=== PATIENT | male | born 1950 | race Caucasian/White ===

== ENCOUNTER → 2018-04-07 18:06 | Outpatient (REF) | payer MEDICARE, OTHER, SELFPAY | LOC: LAB 18:06 | PROVIDERS: Family Provider Family Medicine; PCP Family Medicine; Visit Provider Physician Assistant | DX: Z48.02 Encounter for removal of sutures (principal); L08.9 Local infection of the skin and subcutaneous tissue, unspecified | CPT/HCPCS: 87070; 87075; 87077; 87147; 87186; 87205 ==

== ENCOUNTER 2018-07-28 10:15 | Day surgery (SDC) | payer MEDICARE, OTHER, SELFPAY ==
--- NOTE | 2018-07-23 20:39 | PM.PREOP ---
Pre-operative Note Interval Note Pre-op Check: Yes History & Physical exam performed today by Physician Changes: No
[2018-07-28] MEDS: PROPARACAINE 0.5% OPHTH SOL 2 DROPS EYE-OP (11:10)
[2018-07-28 11:15] VITALS: BP 135/83; PULSE 62; RESP 16; TEMP 36.5; O2SAT 98; BMI 29.7
[2018-07-28] MEDS: CATARACT EYE COMPOUND (10 DROPS/SYRINGE) 3 DROPS EYE-OP (11:15)
--- NOTE | 2018-07-28 12:04 | SUR.OPER ---
Supine on eye stretcher, head on extension cradle secured with tape. Arms tucked at sides with blanket. Pillow under knees.
[2018-07-28] MEDS: BALANCED SALT IRRIG SOLN NO.2 15 ML IRRIG.SOLN IRR (12:21)
[2018-07-28] MEDS: MOXIFLOXACIN OPHTH DROPS 3 ML BOTTLE 2 DROPS INJ ×3 (12:22→12:28)
[2018-07-28] MEDS: NEOMYCIN/POLY/DEX OPHTH OINT 1 APPLIC EYE-RIGHT (12:23)
[2018-07-28] MEDS: HYALURONATE SODIUM 10 MG/ML SYRINGE INJ (12:23)
[2018-07-28] MEDS: TRIAMCINOLONE 50 MG/5 ML VIAL INJ (12:23)
[2018-07-28] MEDS: OFLOXACIN 0.3% OPHTH 5 ML 2 DROPS EYE-RIGHT (12:24)
[2018-07-28] MEDS: CHONDROIDTIN/SOD HYALURONATE 1.05 ML SYRINGE INTRAOCULA (12:25)
[2018-07-28] MEDS: BALANCED SALT IRRIG SOLN NO.2 500 ML, EPINEPHrine 1 MG IRR (12:25)
[2018-07-28] MEDS: LIDOCAINE 1% W/EPI INJ 20 ML INJ (12:27)
[2018-07-28] MEDS: LIDOCAINE 2% 4 ML, BUPIVACAINE 0.5% (PF) 4 ML, HYALURONIDASE 150 UNIT INJ (12:29)
[2018-07-28] MEDS: PHENYLEPHRINE/LIDOCAINE VIAL (OR) 0.2 ML EYE-OP (12:31)
[2018-07-28 12:50] VITALS: BP 137/72; PULSE 62; RESP 16; TEMP 36.3; O2SAT 94
[2018-07-28 13:10] VITALS: BP 134/79; PULSE 75; RESP 15; TEMP 36.3; O2SAT 98
--- NOTE | 2018-07-28 13:54 | P.OP_ITS ---
Operative Date/Time/Diagnoses Date of procedure: 07/28/18 Time of procedure: 12:00 Procedure & Clinicians Procedure: Date of service: July 28, 2018 Preoperative diagnoses: 1. Right nuclear sclerotic Cataract 2. High myopia Postoperative diagnoses: 1. Cataract removed with phacoemulsification and posterior chamber intraocular lens implant. Procedure: Phacoemulsification with posterior chamber intraocular lens implant Surgeon: Dana Greene MD Complications: None Specimen: None Implant: ZCBOO+10.5 Blood loss: None Anesthesia: Retrobulbar with monitored standby Anesthesiologist: Salinas Alvarez M.D. Description of procedure: Patient is a 68 year old male with decreased vision due to cataract which is affecting activities of daily living. He wants surgery to improve vision. He has taken to the operating room and given IV sedation. A retrobulbar block insert consisting of 6 cc of 2% xylocaine without epinephrine mixed half and half with 0.5% Marcaine with 1 cc of hyaluronidase added is placed between the medial and lateral 1/3 of the inferior orbital rim. Lid akinesia is obtain with 1% xylocaine with epinephrine infiltrated along the lid margin. The eye is manually massaged for 30 sec, prepped using Betadine solution, and draped in the usual sterile fashion. Temporal approach was made, a 1 mm side-port incision was made at the 12 oclock meridian. Phenylephrine 1.5% mixed with 1% xylocaine 0.2 cc was placed into the anterior chamber. Viscoat followed by Healon was then placed. A 2.6 mm clear incision with a 2.6 mm blade was placed at the 3 oclock meridian. A 360 degree capsulorrhexis style capsulotomy was then performed with a cystitome needle on a Healon. Hydrodelineation and hydrodissection were performed. The phacoemulsification unit is introduced, and sculpting notice used to groove the central lens. It is then removed in chopping mode. Epi nucleus is removed with epinuclear mode and irrigation aspiration was used to remove the peripheral cortex. The posterior capsule is polished. The intraocular lens is selected, inspected, power confirmed, and placed in the posterior chamber. The pupil was constricted. The wound was stromally hydrated and tested for leaks, there was none and was left sutureless. Vigamox 0.1 cc was placed into the anterior chamber. Kenalog 0.2 cc was placed in the superior subconjunctival space. A drop of antibiotic and was placed and the eye was patched and shielded. The patient was stable and returned to the recovery room in excellent condition. Dictated by: Dana Greene MD Copy to: [facility] Same procedure as scheduled: Yes
== END 2018-07-28 13:12 | disposition home or self-care (01) ==
PROVIDERS: PCP Family Medicine; Visit Provider Ophthalmology
PROC: (CPT 66984; principal; 2018-07-28 12:15)
DX: H25.11 Age-related nuclear cataract, right eye (principal); G47.33 Obstructive sleep apnea (adult) (pediatric); I10 Essential (primary) hypertension; M79.7 Fibromyalgia; R42 Dizziness and giddiness; H44.20 Degenerative myopia, unspecified eye
CPT/HCPCS: 66984; J0171; J2704; J3301; J3470

== ENCOUNTER 2018-08-04 09:13 | Day surgery (SDC) | payer MEDICARE, OTHER, SELFPAY ==
--- NOTE | 2018-08-03 17:10 | PM.PREOP ---
Pre-operative Note Interval Note History & Physical reviewed/Exam performed by Physician: Yes Changes to H&P: No
--- NOTE | 2018-08-04 08:05 | P.OP_ITS ---
Operative Date/Time/Diagnoses Date of procedure: 08/04/18 Time of procedure: 10:45 Procedure & Clinicians Procedure: Preoperative diagnoses: 1. Left nuclear sclerotic and cortical cataract. Postoperative diagnoses: 1. Cataract removed by phacoemulsification with placement of posterior chamber intraocular lens. Procedure: Phacoemulsification with posterior chamber intraocular lens implant Surgeon: Dana Greene MD Complications: None Specimen: None Implant:ZCBOO +13.5 Blood loss: None Anesthesia: Retrobulbar with monitored standby Description of procedure: Patient presents with a complaint of decreased vision due to cataract which is affecting activities of daily living. The patient wants surgery to improve vision. The patient was taken to the operating room and given IV sedation. A retrobulbar block insert consisting of 6 cc of 2% xylocaine without epinephrine mixed half and half with 0.5% Marcaine with 1 cc of hyaluronidase added is placed between the medial and lateral 1/3 of the inferior orbital rim. Lid akinesia is obtain with 1% xylocaine with epinephrine infiltrated along the lid margin. The eye is manually massaged for 30 sec, prepped using Betadine solution, and draped in the usual sterile fashion. He had some discomfort so topical lidoacaine jelly was placed. Temporal approach was made, a 1 mm side-port incision was made 90? from the proposed clear corneal incision position. Phenylephrine 1.5% mixed with 1% xylocaine 0.2 cc was placed into the anterior chamber. Viscoat followed by Mickeyon was then placed. A 2.6 mm clear incision with a 2.6 mm blade was placed. A 360 degree capsulorrhexis style capsulotomy was then performed with a cystitome needle on a Healon. Hydrodelineation and hydrodissection were performed. The phacoemulsification unit is introduced, and sculpting notice used to groove the central lens. It is then removed in chopping mode. Epi nucleus is removed with epinuclear mode and irrigation aspiration was used to remove the peripheral cortex. The posterior capsule is polished. The intraocular lens is selected, inspected, power confirmed, and placed in the posterior chamber. The pupil was constricted with Miostat.. The wound was stromally hydrated and tested for leaks, there was none and it was left sutureless. Vigamox 0.1 cc was placed into the anterior chamber. Kenalog 0.2 cc was placed in the superior subconjunctival space. A drop of antibiotic and was placed and the eye was patched and shielded. The patient was stable and returned to the recovery room in excellent condition. Dictated by: Dana Greene MD Copy to: [facility] Same procedure as scheduled: Yes
[2018-08-04] MEDS: PROPARACAINE 0.5% OPHTH SOL 2 DROPS EYE-OP (09:50)
[2018-08-04 09:52] VITALS: BP 123/71; PULSE 63; RESP 15; TEMP 36.4; O2SAT 98; BMI 29.7
[2018-08-04] MEDS: CATARACT EYE COMPOUND (10 DROPS/SYRINGE) 3 DROPS EYE-OP (10:08)
--- NOTE | 2018-08-04 11:15 | SUR.OPER ---
Supine on eye stretcher, head on extension cradle secured with tape. Arms tucked at sides with blanket. Pillow under knees.
[2018-08-04] MEDS: PHENYLEPHRINE/LIDOCAINE VIAL (OR) 0.2 ML EYE-OP (11:18)
[2018-08-04] MEDS: TRIAMCINOLONE 50 MG/5 ML VIAL INJ (11:19)
[2018-08-04] MEDS: MOXIFLOXACIN OPHTH DROPS 3 ML BOTTLE 2 DROPS INJ (11:19)
[2018-08-04] MEDS: HYALURONATE SODIUM 10 MG/ML SYRINGE INJ (11:20)
[2018-08-04] MEDS: CHONDROIDTIN/SOD HYALURONATE 1.05 ML SYRINGE INTRAOCULA (11:20)
[2018-08-04] MEDS: BALANCED SALT IRRIG SOLN NO.2 15 ML IRRIG.SOLN IRR (11:20)
[2018-08-04] MEDS: NEOMYCIN/POLY/DEX OPHTH OINT 1 APPLIC EYE-LEFT (11:21)
[2018-08-04] MEDS: OFLOXACIN 0.3% OPHTH 5 ML 2 DROPS EYE-LEFT (11:21)
[2018-08-04] MEDS: CARBACHOL 1.5 ML VIAL INJ (11:21)
[2018-08-04] MEDS: LIDOCAINE 2% 4 ML, BUPIVACAINE 0.5% (PF) 4 ML, HYALURONIDASE 150 UNIT INJ (11:22)
[2018-08-04] MEDS: BALANCED SALT IRRIG SOLN NO.2 500 ML, EPINEPHrine 1 MG IRR (11:22)
[2018-08-04] MEDS: LIDOCAINE 1% W/EPI INJ 20 ML INJ (11:23)
[2018-08-04] MEDS: LIDOCAINE JELLY 2% 5 ML 1 APPLIC TOP (11:23)
[2018-08-04 12:00] VITALS: BP 121/77; PULSE 66; RESP 16; TEMP 36.5; O2SAT 97
== END 2018-08-04 15:02 | disposition home or self-care (01) ==
LOC: OR 09:14
PROVIDERS: PCP Family Medicine; Visit Provider Ophthalmology
DX: H25.12 Age-related nuclear cataract, left eye (principal); G47.33 Obstructive sleep apnea (adult) (pediatric); I10 Essential (primary) hypertension; M79.7 Fibromyalgia
CPT/HCPCS: J0171; J2704; J3301; J3470

== ENCOUNTER → 2018-12-08 12:55 | Outpatient (CLI) | payer MEDICARE, OTHER, SELFPAY ==
--- NOTE | 2018-12-08 14:09 | DI.MRI.S_ITS ---
PROCEDURE: MR CERVICAL SPINE WO CON INDICATIONS: Radiculopathy, cervical region TECHNIQUE: Noncontrast sagittal T1 spin echo and T2 fast spin echo, sagittal STIR, foraminal oblique sagittal T2 fast spin echo, and axial gradient echo or T2 fast spin echo through the cervical spine. COMPARISON: [facility], MR, C-SPINE WITHOUT CONTRAST, 11/27/2008, 18:26. FINDINGS: Image quality: Excellent. Alignment and Curvature: Straightening of the normal lordotic curvature. Grade 1 anterolisthesis of C2 on C3. This has developed since the prior study. Multilevel degenerative endplate sclerosis and spurring. Diffuse facet arthropathy. Spinal Cord: Visualized spinal cord has normal size and signal. No cerebellar tonsillar herniation. Paraspinous Soft Tissues: No paravertebral masses. Prevertebral soft tissues are normal in thickness. C2-C3: Bilateral uncovertebral arthropathy and posterior intervening disc osteophyte complex, and bilateral facet arthropathy. Severe right foraminal stenosis with nerve root compression. Mild left foraminal narrowing. This has progressed on both sides since the prior study C3-C4: Bilateral uncovertebral arthropathy and posterior intervening disc osteophyte complex, and bilateral facet disease. Severe bilateral foraminal stenoses with nerve root compression. This appears progressed bilaterally since the remote comparison study C4-C5: Bilateral uncovertebral arthropathy and posterior intervening disc osteophyte complex, and bilateral facet disease. No definite high-grade central canal narrowing. Severe bilateral foraminal stenoses, appear progressed on both sides since prior study C5-C6: Bilateral uncovertebral arthropathy and posterior intervening disc osteophyte complex, and bilateral facet arthropathy. Mild canal narrowing, grossly unchanged. Severe bilateral foraminal stenoses, left greater than right with nerve root compression. This is unchanged on axial images however no oblique sagittal pulse sequences on the prior study for comparison. C6-C7: Bilateral uncovertebral arthropathy and posterior intervening disc osteophyte complex, which is asymmetric, right girdle appear bilateral facet arthropathy. Mild right-sided canal narrowing which is probably unchanged. Moderate bilateral foraminal stenoses with nerve root compression on both sides C7-T1: Normal appearance. IMPRESSION: Interval progression in severe diffuse cervical spondylosis and facet arthropathy with bilateral severe foraminal stenoses as detailed above by spinal level. Grade 1 anterolisthesis of C2 on C3 has developed since prior study. Dictated by: Suresh Crawford M.D. on 12/08/2018 at 14:39 Approved by: Suresh Crawford M.D. on 12/08/2018 at 14:47
== END ==
PROVIDERS: PCP Family Medicine; Visit Provider Orthopaedic Surgery
DX: M47.22 Other spondylosis with radiculopathy, cervical region (principal); M48.02 Spinal stenosis, cervical region; M43.12 Spondylolisthesis, cervical region
CPT/HCPCS: 72141

== ENCOUNTER → 2020-06-11 10:09 | Outpatient (CLI) | payer MEDICARE, OTHER, SELFPAY ==
[2020-06-11 12:17] LABS: COVID19 -Nasal RAPID Negative (Negative)
== END ==
PROVIDERS: PCP Family Medicine; Visit Provider Physician Assistant
DX: Z11.59 Encounter for screening for other viral diseases (principal)
CPT/HCPCS: 87635

== ENCOUNTER 2020-06-13 12:58 | Day surgery (SDC) | payer MEDICARE, OTHER, SELFPAY ==
[2020-06-13] VITALS (7 sets, daily range): BP systolic 92–161; BP diastolic 56–86; PULSE 58–80; RESP 9–18; TEMP 36.4–36.8; O2SAT 92–97; BMI 29.0
--- NOTE | 2020-06-13 | PATH_ITS ---
[facility] Accession Number: [id number] . 01 Material submitted: . PART A: gastrointestinal site - GASTRIC PART B: stomach - STOMACH PART C: colon - RANDOM COLON POLYPS . 01 Clinical history: . A: R/O CELIAC B: R/O HP . 02 Diagnosis: A. Designated Gastric, Biopsy: Duodenal mucosa with no diagnostic abnormality. Negative for active inflammation, features of sprue, dysplasia, or malignancy. . B. Stomach, Biopsies: Gastric antral mucosa with mild chronic inflammation, focal erosion and focal intestinal metaplasia. Intestinal metaplasia present in one of two biopsy fragments on alcian blue stain. Negative for Helicobacter organisms by immunohistochemistry. Negative for dysplasia or malignancy. . C. Random Colon, Biopsies: Colonic mucosa with no diagnostic abnormality. Negative for active, chronic, and microscopic colitis. Negative for dysplasia and malignancy. . [facility] 06/18/2020 1520 Local . 02 Electronically signed: . Brijesh Howard MD, PhD, Pathologist NPI- [id number] . 01 Gross description: . Part A: GASTRIC: Received in formalin are 2 fragment(s) of leahy, soft tissue measuring 0.3 x 0.2 x 0.2 cm to 0.2 x 0.2 x 0.1 cm submitted entirely in 1 cassette(s) Part B: STOMACH: Received in formalin is 1 fragment(s) of leahy, soft tissue measuring 0.5 x 0.3 x 0.2 cm submitted entirely in 1 cassette(s) Part C: RANDOM COLON POLYPS: Received in formalin are 5 fragment(s) of leahy, soft tissue measuring 0.3 x 0.2 x 0.2 cm to 0.2 x 0.2 x 0.2 cm submitted entirely in 1 cassette(s) /[facility] 06/14/2020 0657 Local . 02 Microscopic: . B. An AB/PAS stain is performed to evaluation for intestinal metaplasia, and highlights a focus of goblet cells. An immunohistochemical stain is performed to evaluate for Helicobacter organisms, and is negative. Control stains show appropriate reactivity. . * This test was developed and its performance characteristics determined by [facility]. It has not been cleared or approved by the U.S. Food and Drug Administration. The FDA has determined that such clearance or approval is not necessary. This test is used for clinical purposes. It should not be regarded as investigational or for research. . 02 Pathologist provided ICD-10: K29.70, K31.9, R19.4 . 02 CPT . 351466, 757653, 005095, [id number], 842262 Performed at: 01 [facility] [address] [address], [place], [place] [id number] MD Bert Robles MD Phone: [phone] Performed at: 02 [facility] [address] [place] [id number] MD Mitra Tuttle MD Phone: [phone]
[2020-06-13] MEDS: SODIUM CHLORIDE 0.9% 1,000 ML 21 ML IV (14:01)
--- NOTE | 2020-06-13 14:45 | PM.PREOP ---
Pre-operative Note COVID-19 COVID-19 status: Negative Interval Note History & Physical reviewed/Exam performed by Physician: Yes Changes to H&P: No ASA Class (for procedural sedation): II
--- NOTE | 2020-06-13 14:45 | PM.OP.ENDO ---
Operative Date/Time/Diagnoses Date of procedure: 06/13/20 Pre-op diagnosis: See indication and findings Procedure & Clinicians Study performed: EGD and colonoscopy Same procedure as scheduled: Yes Indications: Diarrhea and GE reflux Surgeon: Emilie Mathew Procedure Notes Procedure in detail: After informed consent was obtained patient was placed in left lateral decubitus position. The video upper scope placed through the oropharynx and with the patient's help swelled into the esophagus. The esophagus, stomach, duodenum were carefully examined. On withdrawal, retroflexed view the GE junction was performed. The scope was removed. The patient tolerated procedure well. The patient was then turned and colonoscope substituted. This was introduced in the rectum slowly advanced cecum. Preparation was good. On slow withdrawal mucosa was carefully examined. The scope was removed. The patient tolerated procedure well. Blood loss none Complications none Sedation MAC with anesthesia Findings EGD 1. One erosion at the GE junction for LA classification A esophagitis. No apparent Tamayo's esophagus present. 2. Patchy gastric erythema and at least 1 nodular erosion in the pre-pyloric region. Biopsies taken to rule out Helicobacter 3. Normal duodenal bulb and sweep biopsies taken to rule out celiac. Colonoscopy 1. Tortuous and somewhat capacious colon. 2. Otherwise normal mucosa. Multiple biopsies taken to rule out microscopic colitis. Recall colonoscopy should be in 5-10 years. He will follow-up with the pathology results for further potential workup. He will stay on his current medications.
== END 2020-06-13 16:10 | disposition home or self-care (01) ==
PROVIDERS: PCP Family Medicine; Referring Provider Internal Medicine Gastroenterology; Visit Provider Internal Medicine Gastroenterology
PROC: 0DJ08ZZ Inspection of Upper Intestinal Tract, Via Natural or Artificial Opening Endoscopic (ICD-10-PCS; CPT 43235; principal; 2020-06-13 14:30)
PROC: 0DJD8ZZ Inspection of Lower Intestinal Tract, Via Natural or Artificial Opening Endoscopic (ICD-10-PCS; CPT 45378; 2020-06-13 14:30)
DX: K29.50 Unspecified chronic gastritis without bleeding (principal); R19.7 Diarrhea, unspecified; K21.9 Gastro-esophageal reflux disease without esophagitis; I10 Essential (primary) hypertension
CPT/HCPCS: 43239; 45378

== ENCOUNTER → 2022-07-09 15:41 | Outpatient (CLI) | payer MEDICARE, OTHER, SELFPAY ==
--- NOTE | 2022-07-09 | DI.MRI.S_ITS ---
PROCEDURE: MR KNEE RT WO CON INDICATIONS: BILATERAL PRIMARY OSTEOARTHRITIS OF KNEE TECHNIQUE: Noncontrast sagittal T2 fast spin echo with fat saturation and large [id number] thin slice PD fast spin echo, sagittal 3-D FLASH with fat saturation; coronal T1 spin echo and PD fast spin echo with fat saturation, and axial PD fast spin echo with fat saturation through the knee. COMPARISON: [facility] [place] Spooner, CR, XR KNEE ARTHRITIC SERIES BI, 07/03/2022, 16:36. FINDINGS: Image quality: Excellent. Anterior Cruciate Ligament: Intact. Posterior Cruciate Ligament: Intact. Medial Collateral Ligament: Intact. Lateral Collateral Ligament: Intact. Medial Meniscus: There is horizontal oblique tearing of the body of the medial meniscus within inferiorly displaced meniscal flap extending into the medial tibial gutter. A parameniscal cyst is seen medial to the proximal tibia measuring up to 4.2 by 2.5 x 0.8 cm. Lateral Meniscus: There is horizontal tearing of the body of the lateral meniscus extending to the free edge margin. Medial and Lateral Tendons: The semimembranosus tendon insertions and meniscocapsular junction appear intact. Visualized portions of the pes anserinus tendons appear normal. No abnormal bursal fluid. The long and short heads of the biceps femoris tendon appear intact. The popliteus tendon appears intact. No signs of posterolateral corner injury. Iliotibial band appears normal. Anterior Structures: The quadriceps and patellar tendons appear intact. No patellar subluxation. No femoral trochlear dysplasia or ventral trochlear prominence. No edema in the infrapatellar fat pad. Bones: No acute trabecular bone injury or fracture. Chronic cystic changes the posterior aspect of the central tibial plateau or most likely related to chronic ligamentous traction or intraosseous ganglion. Medial Femorotibial Cartilage: Moderate partial-thickness cartilage thinning and irregularity is seen throughout the weight-bearing portion of the medial femorotibial compartment. Lateral Femorotibial Cartilage: No focal cartilage defect. Mild surface irregularity at the central weight-bearing portion of the lateral femoral condyle. Patellofemoral Cartilage: Full-thickness cartilage loss is seen at the lateral femoral trochlea and trochlear groove inferiorly with subchondral cystic changes. Soft Tissues: A small joint effusion is present. Trace medial popliteal cyst. The musculature surrounding the knee is normal in bulk. IMPRESSION: 1. Horizontal oblique tear at the body of the medial meniscus with inferiorly displaced meniscal flap located in the medial tibial gutter. A large parameniscal cyst measuring up to 4.2 cm is also seen in the adjacent medial tibial gutter. 2. Horizontal tearing of the body of the lateral meniscus. 3. Large area of full-thickness cartilage loss in the anterior compartment involving the lateral femoral trochlea and trochlear groove. Grade 2-3 chondromalacia in the weight-bearing portion of the medial compartment. Mild grade 2 chondromalacia in the lateral compartment. 4. Cruciate and collateral ligaments are intact. No acute trabecular bone injury. 5. Small joint effusion. Approved by: Nicholas Maki M.D. on 07/10/2022 at 9:10
== END ==
PROVIDERS: PCP Family Medicine; Referring Provider Orthopaedic Surgery; Visit Provider Orthopaedic Surgery
DX: M17.0 Bilateral primary osteoarthritis of knee (principal); S83.241A Other tear of medial meniscus, current injury, right knee, initial encounter; S83.281A Other tear of lateral meniscus, current injury, right knee, initial encounter; M94.261 Chondromalacia, right knee; M25.461 Effusion, right knee
CPT/HCPCS: 73721

== ENCOUNTER → 2022-08-15 12:50 | Outpatient (CLI) | payer MEDICARE, OTHER, SELFPAY ==
[2022-08-15 13:47] LABS: Add Manual Diff / Slide Review NO; Basophils Absolute Auto 0 /uL (0-100); Basophils Percent Auto 0.5 % (0-2); Eosinophils Absolute Auto 100 /uL (0-450); Eosinophils Percent Auto 2.2 % (2-4); Hematocrit 43.6 % (41-53); Hemoglobin 14.3 g/dL (13.5-17.5); Lymphocytes Absolute Auto 1500 /uL (1100-4500); Lymphocytes Percent Auto 29.9 % (25-40); Mean Corpuscular HGB Conc 32.9 % (30-36); Mean Corpuscular Hemoglobin 28.8 PG (26-34); Mean Corpuscular Volume 87.5 fL (80-100); Monocytes Absolute Auto 400 /uL (0-900); Monocytes Percent Auto 8.1 % (3-14); Neutrophils Absolute Auto 3000 /uL (1500-7000); Neutrophils Percent Auto 59.3 % (50-75); Platelet Count 282 X10^3/uL (150-400); Red Blood Cell Count 4.98 X10^6/uL (4.5-5.9); Red Cell Distribution Width 14.2 % (11.6-14.8); White Blood Cell Count 5.1 X10^3/uL (4.5-11.0)
[2022-08-15 14:00] LABS: BUN Creatinine Ratio 19.5 (6-22); Blood Urea Nitrogen 22 mg/dL (9-20); Calcium 9.4 mg/dL (8.4-10.2); Carbon Dioxide 29 mmol/L (22-32); Chloride 96 mmol/L (98-107); Estimated Glomerular Filt Rate > 60 mL/min (>60); Glucose 92 mg/dL (80-110); HEMOLYSIS < 15 (0-50); Potassium 4.3 mmol/L (3.4-5.1); Sodium 136 mmol/L (137-145)
[2022-08-15 14:01] LABS: Hemoglobin A1C% w Est Avg Glu 5.7 % (4.0-6.0)
[2022-08-15 15:38] LABS: Appearance Urine UA CLEAR; Bilirubin Urine UA NEGATIVE (NEGATIVE); Color Urine UA LT. YELLOW; Glucose Urine UA NEGATIVE (Negative); Ketones Urine UA NEGATIVE (NEGATIVE); Leukocyte Esterase Urine UA NEGATIVE (NEGATIVE); Nitrite Urine UA NEGATIVE (Negative); Occult Blood Urine UA NEGATIVE (Negative); Protein Urine UA NEGATIVE (Negative); Urobilinogen Urine UA 0.2 E.U./dL (0.2)
[2022-08-15 16:27] LABS: Bacteria Urine None Seen; Culture Indicated Urine Cult Not Indicated; RBC Urine None Seen (0-5/HPF); WBC Urine 0-1/HPF (0-5/HPF)
== END ==
PROVIDERS: PCP Family Medicine; Referring Provider Orthopaedic Surgery; Visit Provider Orthopaedic Surgery
DX: Z01.818 Encounter for other preprocedural examination (principal); R73.9 Hyperglycemia, unspecified; Z01.812 Encounter for preprocedural laboratory examination; N39.0 Urinary tract infection, site not specified
CPT/HCPCS: 36415; 80048; 81001; 83036; 85025; 93005

== ENCOUNTER 2024-12-29 20:17 | Emergency (ER) | payer MEDICARE, OTHER, SELFPAY ==
[2024-12-29 20:57] VITALS: BP 193/94; PULSE 63; RESP 16; TEMP 37; O2SAT 98; BMI 27.4
[2024-12-29 22:13] VITALS: BP 173/74; PULSE 60; RESP 18; TEMP 36.8; O2SAT 99
[2024-12-30] VITALS: BP 181/79; PULSE 56; RESP 14; O2SAT 95
--- NOTE | 2024-12-30 00:16 | DI.RAD.S_ITS ---
1PROCEDURE: XR CHEST 1V INDICATIONS: Chest Pain TECHNIQUE: One view of the chest was acquired. COMPARISON: None. FINDINGS AND IMPRESSION: On this single view study, no airspace consolidation or pleural effusion is seen. Normal heart size. Degenerative osseous changes. Dictated by: Noam Murry M.D. on 12/30/2024 at 1:45 Approved by: Noam Murry M.D. on 12/30/2024 at 1:45
[2024-12-30 00:39] LABS: Add Manual Diff / Slide Review NO; Basophils Absolute Auto 0 /uL (0-100); Basophils Percent Auto 0.7 % (0-2); Eosinophils Absolute Auto 200 /uL (0-450); Eosinophils Percent Auto 2.7 % (2-4); Hemoglobin 13.9 g/dL (13.5-17.5); Lymphocytes Absolute Auto 1900 /uL (1100-4500); Lymphocytes Percent Auto 34.2 % (25-40); Mean Corpuscular HGB Conc 33.8 % (30-36); Mean Corpuscular Hemoglobin 30.3 PG (26-34); Mean Corpuscular Volume 89.6 fL (80-100); Monocytes Absolute Auto 400 /uL (0-900); Monocytes Percent Auto 8.2 % (3-14); Neutrophils Absolute Auto 3000 /uL (1500-7000); Neutrophils Percent Auto 54.2 % (50-75); Platelet Count 277 X10^3/uL (150-400); Prothrombin Time 11.8 SECONDS (9.4-12.5); Red Blood Cell Count 4.58 X10^6/uL (4.5-5.9); Red Cell Distribution Width 13.6 % (11.6-14.8); White Blood Cell Count 5.5 X10^3/uL (4.5-11.0)
[2024-12-30 00:43] LABS: Alanine Aminotransferase 23 IU/L (<50); Albumin 4.4 g/dL (3.5-5.0); Albumin Globulin Ratio 1.6 (1.0-2.8); Alkaline Phosphatase 61 U/L (38-126); Aspartate Aminotransferase 42 IU/L (17-59); BUN Creatinine Ratio 22.1 (6-22); Bilirubin Total 0.7 mg/dL (0.2-1.3); Blood Urea Nitrogen 19 mg/dL (9-20); Calcium 9.3 mg/dL (8.4-10.2); Carbon Dioxide 28 mmol/L (22-32); Chloride 101 mmol/L (98-107); Creatine Kinase 85 U/L (55-170); Estimated Glomerular Filt Rate > 60 mL/min (>60); Globulin 2.8 g/dL (1.7-4.1); Glucose 96 mg/dL (70-99); Lipase 72 U/L (23-300); Magnesium 1.9 mg/dL (1.6-2.3); Sodium 135 mmol/L (137-145); Total Protein 7.2 g/dL (6.3-8.2)
[2024-12-30 00:47] LABS: HEMOLYSIS 71 (0-50); Potassium 4.5 mmol/L (3.4-5.1)
[2024-12-30 00:54] LABS: NT-proBNP (BNP-Adult 18+) 38 pg/mL (<125); Troponin I < 0.012 ng/mL (0.01-0.034)
[2024-12-30 02:38] VITALS: PULSE 47; RESP 18; O2SAT 99
--- NOTE | 2024-12-30 02:55 | ED.GENADULT ---
HPI - General Adult General Chief complaint: Hypertension Stated complaint: high BP, dizzyness, headache Time Seen by Provider: 12/30/24 02:54 Source: patient, RN notes reviewed and old records reviewed Mode of arrival: Ambulatory Limitations: no limitations History of Present Illness HPI narrative: 74-year-old male history of hypertension, fibromyalgia, chronic pain who presents with complaint of elevated blood pressures. States he typically runs about 140s for the past 10 days has been running 170s to 180s he also notes his heart rate typically runs in the 60s but he was had heart rates in the 50s. Notes he was stopped his Elavil for about 6 days but thought that might be related so he restarted it about 6 days ago. He was on lisinopril for hypertension he was not had his dose this evening but does normally take it. He takes Celebrex daily but no aspirin or thinners. Patient states no chest pain, no shortness of breath, he was had some dizziness on and off over the years states he had some in the last day but it has not resolved. He states he was had that dizziness or spinning sensation on and off for years it is often worse when he moves his head quickly. Has not significantly worsened. No headaches currently. No nausea or vomiting, no other GI or urinary symptoms. Patient states no vision changes, no difficulty with movement speech. No drug allergies. Reports a history of back surgery x2 and right knee surgery. No tobacco alcohol or recreational drugs. He has follow up in the next week with Neurology as he was noticed some memory issues that he thinks might be progressive. He has not been in touch with his physician about his blood pressure this week. He elected to come today as he read articles that noted if you are blood pressure is high and your heart rates low he should be evaluated. Related Data Home Medications ?Medication ?Instructions ?Recorded ?Confirmed amitriptyline 10 mg tablet 10 mg PO DAILY 07/28/18 06/13/20 bupropion HCl 150 mg tablet,12 hr 150 mg PO DAILY 07/28/18 06/13/20 sustained-release celecoxib 200 mg capsule (Celebrex) 200 mg PO DAILY 07/28/18 06/13/20 clonazepam 0.25 mg disintegrating See Rx Instructions .Route .COMPLEX 07/28/18 06/13/20 tablet dextroamphetamine sulfate 5 mg See Rx Instructions .Route .COMPLEX 07/28/18 06/13/20 tablet fluoxetine 10 mg capsule 10 mg PO DAILY 07/28/18 06/13/20 levothyroxine 25 mcg tablet 25 mcg PO DAILY 07/28/18 06/13/20 liothyronine 5 mcg tablet 5 mcg PO DAILY 07/28/18 06/13/20 lisinopril 20 mg tablet 20 mg PO DAILY 07/28/18 06/13/20 Allergies Allergy/AdvReac Type Severity Reaction Status Date / Time midazolam (MIDAZOLAM) AdvReac Severe PT FREAKS Verified 12/29/24 20:55 OUT Review of Systems Review of Systems ROS Unobtainable: All systems reviewed & are unremarkable except as noted in HPI and below Patient History Social History household members: spouse Smoking Status: Former smoker alcohol intake: never Smoking Status: Former smoker Exam Narrative Exam Narrative: GENERAL: Alert and oriented x three, male in mild distress HEENT: Head normocephalic, atraumatic, EOMI, pupils reactive, face symmetric, moist mucous membranes NECK: Supple, full range of motion CARDIOVASCULAR: Regular rate and rhythm without murmurs, rubs or gallops. No JVD. No edema bilateral lower extremities RESPIRATORY: Breath sounds equal bilaterally, no wheezes rales or rhonchi. ABDOMEN: Soft, nontender. Normoactive bowel sounds all 4 quadrants. No guarding or rebound, rigidity, no mass : No CVA tenderness EXTREMITIES: Normal range of motion, no clubbing or edema. Neurovascularly intact NEUROLOGICAL: Cranial nerves II through XII grossly intact. Moving all extremities SKIN: Warm, dry, no petechiae, no rashes or lesions. Initial Vital Signs Initial Vital Signs: Vital Signs Temperature 98.6 F 12/29/24 20:57 Pulse Rate 63 12/29/24 20:57 Respiratory Rate 16 12/29/24 20:57 Blood Pressure 193/94 H 12/29/24 20:57 Pulse Oximetry 98 12/29/24 20:57 Oxygen Delivery Method Room Air 12/29/24 20:57 Course Orders Ordered: ED Orders 12/30/24 00:16 XR chest 1V Stat EKG-12 Lead Stat 12/30/24 00:20 Complete Blood Count AUTO DIFF Stat Comprehensive Metabolic Panel Stat Lipase Stat Magnesium Stat NT-proBNP (BNP-Adult 18+) Stat Prothrombin Time INR Stat Troponin & CK Cardiac Panel Stat Discontinued Medications Aspirin (Aspirin 81 Mg Chew Tab) 324 mg PO NOW ONE Stop: 12/30/24 00:16 Last Admin: 12/30/24 03:13 Dose: Not Given Documented By: AB Vital Signs Vital signs: Vital Signs - 8 hr 12/30/24 00:00 12/30/24 02:38 12/30/24 03:00 Pulse Rate 56 L 47 L 62 Respiratory Rate 14 18 24 Blood Pressure 181/79 H Pulse Oximetry 95 99 100 Oxygen Delivery Method Room Air 12/30/24 03:12 12/30/24 03:12 Pulse Rate 56 L Respiratory Rate 18 Blood Pressure 179/77 H Pulse Oximetry 96 Oxygen Delivery Method Medical Decision Making Lab Data 12/30/24 00:20 12/30/24 00:20 Labs: Lab Results 12/30/24 Range/Units 00:20 WBC 5.5 (4.5-11.0) X10^3/uL RBC 4.58 (4.5-5.9) X10^6/uL Hgb 13.9 (13.5-17.5) g/dL Hct 41.0 (41-53) % MCV 89.6 (80-100) fL MCH 30.3 (26-34) PG MCHC 33.8 (30-36) % RDW 13.6 (11.6-14.8) % Plt Count 277 (150-400) X10^3/uL Neut % (Auto) 54.2 (50-75) % Lymph % (Auto) 34.2 (25-40) % Buchanan % (Auto) 8.2 (3-14) % Eos % (Auto) 2.7 (2-4) % Baso % (Auto) 0.7 (0-2) % Neut # (Auto) 3000 (3354-7484) /uL Lymph # (Auto) 1900 (6435-5334) /uL [place] # (Auto) 400 (0-900) /uL Eos # (Auto) 200 (0-450) /uL Baso # (Auto) 0 (0-100) /uL PT 11.8 (9.4-12.5) SECONDS INR 1.0 (0.9-1.3) Sodium 135 L (137-145) mmol/L Potassium 4.5 (3.4-5.1) mmol/L Chloride 101 (98-107) mmol/L Carbon Dioxide 28 (22-32) mmol/L BUN 19 (9-20) mg/dL Creatinine 0.86 (0.66-1.25) mg/dL Estimated GFR > 60 (>60) mL/min BUN/Creatinine Ratio 22.1 H (6-22) Glucose 96 (70-99) mg/dL Calcium 9.3 (8.4-10.2) mg/dL Magnesium 1.9 (1.6-2.3) mg/dL Total Bilirubin 0.7 (0.2-1.3) mg/dL AST 42 (17-59) IU/L ALT 23 (<50) IU/L Alkaline Phosphatase 61 (38-126) U/L Total Creatine Kinase 85 (55-170) U/L Troponin I < 0.012 (0.01-0.034) ng/mL NT-Pro-B Natriuret Pep 38 (<125) pg/mL Total Protein 7.2 (6.3-8.2) g/dL Albumin 4.4 (3.5-5.0) g/dL Globulin 2.8 (1.7-4.1) g/dL Albumin/Globulin Ratio 1.6 (1.0-2.8) Lipase 72 (23-300) U/L ECG Data Attestation: I personally reviewed and interpreted this ECG as follows: Interpretation: Sinus bradycardia premature supraventricular complexes. Rate of 59 CO 176 QRS 84 QTC of 417, no acute ST elevation depression. MDM Narrative Medical decision making narrative: Labs show normal white count hemoglobin and platelets, INR is negative sodium is 135 electrolytes are appropriate BUN creatinine is normal, LFTs are normal troponins less than 0.012 with a BNP of 38. Chest x-ray shows no acute change degenerative osseous changes noted. No airspace consolidation pleural effusion normal heart size. EKG sinus bradycardia premature supraventricular complexes no acute ST changes appreciated. 74-year-old male comes in with a report of hypertension notes some dizziness or vertigo symptoms but also notes has been on and off for years. He denies any headaches currently. Denies any chest pain or shortness of breath or other neurologic changes. Notes blood pressure has been elevated for the past 10 days did stop his Elavil but then restarted it so this seems less likely to be a source. Encouraged him to follow up with the primary care is blood pressure is elevated this evening but he has not had his evening meds including his antihypertensive. Persistently elevated to talk with his physician about adjusting his medication. He was follow up in the next week with Neurology because he has been having some memory issues. Family is at bedside for the discussion. Patient notes he will take his home blood pressure medication rather than taking any medication here in the department once he gets home. Discharge Plan Departure Patient Disposition: Home Clinical Impression: Hypertension Activity Restrictions/Additional Instructions: Follow up with your physician, touch base to see if they would like to adjust your blood pressure medication. Please return for new or worsening symptoms, severe headaches, sudden changes to vision or movement or speech, chest pain, shortness of breath, persistent vomiting, new swelling in your extremities or other new or concerning changes. Prescriptions: No Action celecoxib [Celebrex] 200 mg Capsule 200 mg PO DAILY bupropion HCl 150 mg Tablet Sustained-Release 12 Hr 150 mg PO DAILY lisinopril 20 mg Tablet 20 mg PO DAILY levothyroxine 25 mcg Tablet 25 mcg PO DAILY amitriptyline 10 mg Tablet 10 mg PO DAILY clonazepam 0.25 mg Tablet,Disintegrating See Rx Instructions .ROUTE .COMPLEX Patient Comments: takes .250 tid and .75mg hs Rx Instructions: takes .250 tid and .75mg hs dextroamphetamine sulfate 5 mg Tablet See Rx Instructions .ROUTE .COMPLEX Rx Instructions: 10mg at 0830 10mg at 1130 5mg at 1730 liothyronine 5 mcg Tablet 5 mcg PO DAILY fluoxetine 10 mg Capsule 10 mg PO DAILY Referrals: Beau Long MD [Primary Care Provider, Family Practice] Stand Alone Forms: Patient Portal/API
[2024-12-30 03:00] VITALS: PULSE 62; RESP 24; O2SAT 100
[2024-12-30 03:12] VITALS: BP 179/77; PULSE 56; RESP 18; O2SAT 96
--- NOTE | 2024-12-30 03:17 | EKG_ITS ---
[facility] [address] [address] Test Date: 2024-12-30 Pat Name: Dante Mills Department: [facility] Room: Gender: Male Dye Feeder: PDV : 1950 Requested By: Order Number: [id number] Reading MD: Jairo Taveras Measurements Intervals [place] Rate: 59 P: 61 [place]: 176 QRS: 6 QRSD: 84 T: 30 QT: 422 QTc: 417 Interpretive Statements Sinus bradycardia with premature supraventricular complexes Electronically Signed On 12-30-2024 16:16:41 PDT by Jairo Taveras
== END 2024-12-30 03:37 | disposition home or self-care (01) ==
PROVIDERS: Emergency Provider Emergency Medicine; PCP Family Medicine
DX: I10 Essential (primary) hypertension (principal); Z87.891 Personal history of nicotine dependence
CPT/HCPCS: 71045; 80053; 82550; 83690; 83735; 83880; 84484; 85025; 85610; 93005; 99281; 99284